=== PATIENT | female | born 1975 ===

== ENCOUNTER 2025-01-20 11:00 | Day surgery (SDC) | payer OTHER ==
[2025-01-20] MEDS ORDERED: CEFAZOLIN SODIUM 1,000 MG VIAL ONE (11:57)
[2025-01-20] MEDS ORDERED: POVIDONE-IODINE 118 ML BOTT TOP ONE (12:35)
[2025-01-20] MEDS ORDERED: ZITHROMAX TRI-500 MG PO (15:21)
== END 2025-01-20 19:20 | disposition home or self-care (01) ==
LOC: CIR.AMB 11:00
PROVIDERS: ATTEND Obstetrics & Gynecology
DX: N84.0 Polyp of corpus uteri (principal); Z88.5 Allergy status to narcotic agent